=== PATIENT | female | born 1975 | race Caucasian/White ===

== ENCOUNTER 2019-08-05 16:27 | Emergency (ER) | payer MEDICAID, OTHER ==
[~2019-08-05] VITALS: Ht 167.6 cm; Wt 61.2 kg
[~2019-08-05 16:27] MED LIST: ALBU18 IN; ALPR0.5T PO; NAPR-228; PRED10PA7 OR; PRED5PAK8 OR; [UNRECOGNIZED DRUG - OTHER] PO
[2019-08-05 16:37] VITALS: BP 120/75
[2019-08-05] MEDS ORDERED: HYDROcodone-ACET 7.5/325MG TAB PO ONE (18:00)
== END 2019-08-05 18:08 | disposition home or self-care (01) ==
LOC: EDBD 16:27 → ER 16:27
DX: G89.29 Other chronic pain (principal); M54.5 Low back pain; J45.909 Unspecified asthma, uncomplicated; Z76.0 Encounter for issue of repeat prescription; Z88.0 Allergy status to penicillin; Z91.013 Allergy to seafood

== ENCOUNTER 2023-08-11 22:53 | Emergency (ER) | payer MEDICAID ==
[~2023-08-11] VITALS: Ht 154.9 cm; Wt 45.4 kg
[2023-08-12] VITALS: BP 115/75; PULSE 111; RESP 19; TEMP 98.2; O2SAT 100
[2023-08-12] MEDS: clonazePAM 0.5 MG TAB PO ONE (00:05)
== END 2023-08-12 08:00 | disposition left against medical advice (07) ==
LOC: ER 22:53 → EDBD 22:53 → ER 08-12 08:00
DX: F41.9 Anxiety disorder, unspecified (principal); F32.A Depression, unspecified; Z90.49 Acquired absence of other specified parts of digestive tract